=== PATIENT | male | born 1985 | race Caucasian/White ===

== ENCOUNTER 2018-03-08 15:55 | Emergency (ER) | payer SELFPAY ==
[~2018-03-08] VITALS: Ht 180.3 cm; Wt 80.0 kg
[2018-03-08 16:36] LABS: HEMATOCRIT 43.1 % (39.0-50.0); HEMOGLOBIN 14.4 g/dl (14.0-18.0); IMMATURE GRANULOCYTES 0.2 % (0.0-1.0); MEAN CELL VOLUME 94.9 fL CALC (80.0-100.0); MEAN CORPUSCULAR HGB 31.7 pG CALC (26.0-32.0); MEAN CORPUSCULAR HGB CONC 33.4 g/L CALC (32.0-36.0); NEUT# 4.07 thou/uL (1.82-7.42); RED BLOOD COUNT 4.54 mill/uL (4.70-6.10); RED CELL DISTRI WIDTH 13.1 % (11.5-15.5)
[2018-03-08 16:43] VITALS: BP 108/58
[2018-03-08 16:44] LABS: ANION GAP 16 (6-22 (CALC)); BUN 9 mg/dL (9-20); BUN/CREATININE RATIO 11 (12-20 (CALC)); CARBON DIOXIDE 23 mmol/l (22-30); CHLORIDE 108 mmol/l (95-108); CREATININE 0.8 mg/dL (0.7-1.3); GFR > 60 ML/MIN (>=60 (CALC)); GFR FOR AFR.AMER. > 60 ML/MIN (>=60 (CALC)); POTASSIUM 3.3 mmol/l (3.5-5.1); SODIUM 144 mmol/l (137-146)
== END 2018-03-08 16:43 | disposition left against medical advice (07) | DRG 312 ==
LOC: ED 15:55
PROVIDERS: Family Medicine
DX: R55 Syncope and collapse (principal); F17.210 Nicotine dependence, cigarettes, uncomplicated; Z91.19 Patient's noncompliance with other medical treatment and regimen

== ENCOUNTER 2018-08-26 15:05 | Emergency (ER) | payer SELFPAY ==
[~2018-08-26] VITALS: Ht 180.3 cm; Wt 81.8 kg
[2018-08-26] MEDS ORDERED: KEFLEX500 M1 PO (16:23)
[2018-08-26] MEDS ORDERED: TORADOL PO (16:23)
[2018-08-26 16:28] VITALS: BP 124/84
== END 2018-08-26 16:40 | disposition home or self-care (01) | DRG 605 ==
LOC: ED 15:05
PROC: 0HQGXZZ Repair Left Hand Skin, External Approach (ICD-10-PCS; principal; 2018-08-26)
DX: S61.215A Laceration without foreign body of left ring finger without damage to nail, initial encounter (principal); F17.200 Nicotine dependence, unspecified, uncomplicated; W23.1XXA Caught, crushed, jammed, or pinched between stationary objects, initial encounter

== ENCOUNTER 2020-08-25 16:17 | Emergency (ER) | payer SELFPAY ==
[~2020-08-25] VITALS: Ht 180.3 cm; Wt 80.0 kg
[~2020-08-25 16:17] MED LIST: KEFLEX500 M1 PO; TORADOL PO
[2020-08-25] MEDS ORDERED: PERCOCET 10/31 COMBO PO (18:41)
[2020-08-25] MEDS ORDERED: AMOXICILLIN500 MG PO (18:41)
[2020-08-25 18:50] VITALS: BP 141/86
== END 2020-08-25 18:58 | disposition home or self-care (01) | DRG 605 ==
LOC: ED 16:17
PROC: 0HQ5XZZ Repair Chest Skin, External Approach (ICD-10-PCS; principal; 2020-08-25)
DX: S21.112A Laceration without foreign body of left front wall of thorax without penetration into thoracic cavity, initial encounter (principal); F17.200 Nicotine dependence, unspecified, uncomplicated; W29.3XXA Contact with powered garden and outdoor hand tools and machinery, initial encounter; Y93.H9 Activity, other involving exterior property and land maintenance, building and construction; Y99.0 Civilian activity done for income or pay

== ENCOUNTER 2021-07-10 06:06 | Emergency (ER) | payer SELFPAY ==
[~2021-07-10] VITALS: Ht 180.3 cm; Wt 73.6 kg
[~2021-07-10 06:06] MED LIST changes: +AMOXICILLIN500 MG PO; +PERCOCET 10/31 COMBO PO
[2021-07-10 08:21] LABS: HEMATOCRIT 40.1 % (39.0-50.0); HEMOGLOBIN 12.8 g/dl (14.0-18.0); IMMATURE GRANULOCYTES 0.2 % (0.0-5.0); MEAN CELL VOLUME 91.3 fL CALC (80.0-100.0); MEAN CORPUSCULAR HGB 29.2 pG CALC (26.0-32.0); MEAN CORPUSCULAR HGB CONC 31.9 g/dL CAL (32.0-36.0); NEUT# 7.23 thou/uL (1.82-7.42); RED BLOOD COUNT 4.39 mill/uL (4.70-6.10); RED CELL DISTRI WIDTH 12.6 % (11.5-15.5)
[2021-07-10 08:45] LABS: ANION GAP 14 (6-22 (CALC)); BUN 18 mg/dL (9-20); BUN/CREATININE RATIO 26 (12-20 (CALC)); CARBON DIOXIDE 24 mmol/l (22-30); CHLORIDE 104 mmol/l (95-108); CREATININE 0.7 mg/dL (0.7-1.3); GFR > 60 ML/MIN (>=60 (CALC)); GFR FOR AFR.AMER. > 60 ML/MIN (>=60 (CALC)); POTASSIUM 3.7 mmol/l (3.5-5.1); SODIUM 138 mmol/l (137-146)
[2021-07-10] MEDS ORDERED: BACTRIM DS1 TAB PO (09:44)
[2021-07-10] MEDS ORDERED: CEPHALEXIN500 M1 PO (09:44)
[2021-07-10 09:45] VITALS: BP 130/92
== END 2021-07-10 09:51 | disposition left against medical advice (07) | DRG 558 ==
LOC: ED 06:06
PROVIDERS: Family Medicine
DX: M65.9 Synovitis and tenosynovitis, unspecified (principal); F17.210 Nicotine dependence, cigarettes, uncomplicated; Z91.19 Patient's noncompliance with other medical treatment and regimen